=== PATIENT | male | born 1990 | race Caucasian/White ===

== ENCOUNTER 2021-06-26 07:28 | Emergency (ER) | payer OTHER, SELFPAY ==
[2021-06-26] MEDS ORDERED: Boostrix 0.5 ML (Tdap) VIAL ONE (08:19)
== END 2021-06-26 08:25 | disposition home or self-care (01) ==
LOC: CSHERS 07:28
DX: T23.122A Burn of first degree of single left finger (nail) except thumb, initial encounter (principal); L03.114 Cellulitis of left upper limb; L03.113 Cellulitis of right upper limb; X12.XXXA Contact with other hot fluids, initial encounter; Z23 Encounter for immunization
CPT/HCPCS: 90471; 90715

== ENCOUNTER 2021-07-09 12:59 | Emergency (ER) | payer SELFPAY | END 2021-07-09 15:11 | disposition home or self-care (01) | LOC: CSHERS 12:59 | DX: L02.415 Cutaneous abscess of right lower limb (principal) | CPT/HCPCS: 99282 ==

== ENCOUNTER 2021-09-04 10:52 | Emergency (ER) | payer SELFPAY | END 2021-09-04 16:27 | disposition home or self-care (01) | LOC: CSHERS 10:52 | DX: Z48.02 Encounter for removal of sutures (principal) ==